=== PATIENT | female | born 1970 | race Asian ===

== ENCOUNTER 2016-10-02 11:22 | Emergency (ER) | payer OTHER ==
[~2016-10-02] VITALS: Ht 162.6 cm; Wt 59.0 kg
[2016-10-02 11:49] VITALS: BP 124/84
--- NOTE | 2016-10-02 12:41 | ED GENERAL ADULT ---
History of Present Illness General Chief Complaint: General Adult Stated Complaint: PT TOOK NEW MEDS LAST PM ? REACTION Source: patient Exam Limitations: no limitations Vital Signs & Intake/Output Vital Signs & Intake/Output Vital Signs Date Time Temp Pulse Resp B/P B/P Pulse O2 O2 Flow FiO2 Mean Ox Delivery Rate 10/02 1149 98.4 85 18 124/84 99 Room Air Room Air Allergies Coded Allergies: No Known Allergies (10/02/16) Triage Note: TRIAGE: 46 Y/O FEMALE PRESENTS C/O ?REACTION TO NEW MEDS. REPORTS WAS SEEN BY PCP YESTERDAY AND WAS PRESCRIBED ATIVAN AND ZOLOFT. ZOLOFT AND ATIVAN LAST NIGHT ON AN EMPTY STOMACH - NOW EXPERIENCING A ?REACTION: HOT FLASHES, SHIVERING, +N/+V/-D. REPORTS CHEST HEAVINESS X 2 WEEKS. HISTORY OF DEPRESSION AND ANXIETY (RECENTLY DIAGNOSED) Triage Nurses Notes Reviewed? yes Onset: LAST NIGHT Duration: day(s):, better Timing: no prior history Injury Environment: home Severity: moderate Severity Numbers: 7 Modifying Factors: Improves With: medication (ATIVAN). : No Patient currently breastfeeds: No HPI: Patient is a 46-year-old female presenting to the emergency department with chief complaint of questionable medication reaction. Patient reports that she started Zoloft and Ativan last night. She took the Zoloft at 6 PM on an empty stomach and approximately 4-6 hours later she developed nausea and vomiting times one episode. She then became very anxious and took a dose of her Ativan 0.25 mg. She reports that that helped calm her down and she is able fall back asleep. She woke up very anxious again at 6 AM and took another 0.25 mg of Ativan. That helped again. She is feeling better at this time. She was supposed to fly today and she gets very nervous about flying. She called and canceled her trip. Denies any current nausea. No diarrhea or abdominal pain. No chest pain or palpitations. Denies any fevers or chills. She reports that she has been very stressed out at work over the past several weeks to months. Her doctor decided to put her on medication yesterday. (CORDELIA INGRAM) Past History Travel History Traveled to [place] past 21 day No Medical History Any Pertinent Medical History? see below for history Psychiatric: anxiety, depression Surgical History Surgical History: non-contributory Psychosocial History What is your primary language [place] Tobacco Use: Never used ETOH Use: denies use Illicit Drug Use: denies illicit drug use Family History Hx Contributory? No (CORDELIA INGRAM) Review of Systems Review of Systems Constitutional: Reports: no symptoms. Comments Review of systems: See HPI, All other systems negative. Constitutional, no chills fever or weight loss HEENT: No visual changes no sore throat no congestion Cardiovascular: No chest pain ,palpitation , orthopnea or ankle swelling Skin, no jaundice no rashes Respiratory: No dyspnea cough sputum or hemoptysis GI: No diarrhea : No dysuria No hematuria Muscle skeletal: no back pain, no neck pain, Neurologic: No numbness no confusion Psych: Positive anxiety Heme/endocrine: No bruising no bleeding no polyuria or polydipsia Immunology: No splenectomy or history of AIDS (CORDELIA INGRAM) Physical Exam Physical Exam General Appearance: well developed/nourished, no apparent distress, alert, awake , comfortable Comments: Well-developed well-nourished person in no acute distress HEENT: Pupils equally round and reactive to light and accommodation. Nose is atraumatic. External auditory canal and Tympanic membranes clear. Pharynx normal. No swelling or edema. Neck: Supple, no lymphadenopathy, normal range of motion without pain or tenderness Back: Nontender Cardiovascular: Regular rate and rhythms no murmurs rubs or gallops, normal JVP Respiratory: Chest nontender. No respiratory distress.breath sounds clear to auscultation bilaterally Abdomen: Soft, nontender nondistended, no appreciable organomegaly. Normal bowel sounds. No ascites, no rebound or guarding. Extremity: No edema Neuro: Alert oriented x3, CN 2-12 INTACT. Skin: No appreciable rash on exposed skin, skin is warm and dry. Psych: Mood and affect is normal, memory and judgment is normal. Core Measures ACS in differential dx? No CVA/TIA Diagnosis: No Severe Sepsis Present: No Septic Shock Present: No (CORDELIA INGRAM) Progress Differential Diagnoses I considered the following diagnoses in my evaluation of the patient: Medication reaction, gastritis, generalized anxiety disorder Plan of Care: Patient feeling asymptomatic at this time. She will go home and follow up with a primary care physician. Educated on taking medication on a full stomach. She 'll continue taking Ativan as prescribed. Initial ED EKG: none (CORDELIA INGRAM) Departure Departure Time of Disposition: 1254 Disposition: HOME OR SELF CARE Condition: Stable Clinical Impression Primary Impression: Medication reaction Qualifiers: Encounter type: initial encounter Qualified Code: T88.7XXA - Unspecified adverse effect of drug or medicament, initial encounter Secondary Impressions: Anxiety Referrals: SANTINO BOYCE MD (PCP/Family) Additional Instructions: Follow-up with your primary care physician on Tuesday call to make an appointment. Make sure you take medication with food in her stomach. Return for worsening symptoms or concerns. Departure Forms: Customer Survey D/C INS-APPENDICITIS EXCLUSION General Discharge Information (CORDELIA INGRAM) PA/NODULIZER Co-Sign Statement Statement: ED Attending supervision documentation- I saw and evaluated the patient. I have also reviewed all the pertinent lab results and diagnostic results. I agree with the findings and the plan of care as documented in the PA's/NODULIZER's documentation. x I have reviewed the ED Record and agree with the PA's/NODULIZER's documentation. [] Additions or exceptions (if any) to the PAs/NODULIZER's note and plan are summarized below: [] (DODIE GAN MD) Critical Care Note Critical Care Note Critical Care Time: non-applicable (CORDELIA INGRAM)
== END 2016-10-02 13:05 ==
LOC: ERH 11:22
DX: T43.225A Adverse effect of selective serotonin reuptake inhibitors, initial encounter (principal); F41.9 Anxiety disorder, unspecified